=== PATIENT | male | born 2000 | race African-American/Black ===

== ENCOUNTER 2019-03-30 16:07 | Emergency (ER) | payer SELFPAY ==
[2019-03-30] MEDS ORDERED: Sodium Chloride 0.9% 10 ML Syringe FLUSH PRN (16:33)
[2019-03-30] MEDS ORDERED: Sodium Chloride 0.9% 1,000 ML IV ONE (16:35)
[2019-03-30] MEDS ORDERED: Iopamidol 755 Mg/ML 100 ML Bottle IV ONE (17:18)
[2019-03-30] MEDS ORDERED: Sodium Chloride 0.9% 1,000 ML IV SCH (19:30)
--- NOTE | 2019-03-30 20:14 | EDM.PDOC ---
ED HPI GENERAL MEDICAL PROBLEM - General Chief Complaint: General Stated Complaint: SPINTING UP BLOOD Time Seen by Provider: 03/30/19 16:20 Source of Information: Reports: Patient History Limitations: Reports: No Limitations - History of Present Illness INITIAL COMMENTS - FREE TEXT/NARRATIVE: 19-year-old male is playing a football game and was speared by another player's helmet over his right lateral lower chest and mid flank at approximate 4 PM today. He states he had immediate pain in the area but continued to play football and then he had with production of bright red blood in his sputum. This was associated with an increase in pain particularly with deep breaths and with movement of his chest and the EMS at the football game evaluated the patient and recommended that he come to the emergency department for evaluation. Another member of the team brought the patient to the emergency department via private vehicle for evaluation. The patient reports he has sharp pain in his right lower chest and right mid flank that is worse with palpation and with taking a deep breath and with movement. He rates pain as a 6/10. The pain does not radiate. He has had no nausea or vomiting. He has not urinated since the injury occurred. He feels somewhat short of breath because of the pain and he has some splinting type respirations. There are no other associated signs or symptoms. There are no other modifying factors. Onset: Today (4 PM) Duration: Constant Location: Reports: Chest, Abdomen Quality: Reports: Sharp, Stabbing Severity: Moderate Improves with: Reports: Rest Worsens with: Reports: Breathing, Other (Palpation), Movement (Movement) Context: Reports: Trauma Associated Symptoms: Reports: Chest Pain, Shortness of Breath, Other (Hemoptysis ) Treatments PRINTED [employer]AR[employer]AS[employer] ETCHER: Reports: Other (see below) (Nothing) Right abdomen Pain Score (Numeric/FACES): 6 - Related Data Allergies Allergy/AdvReac Type Severity Reaction Status Date / Time amoxicillin [From Augmentin] Allergy Swelling Verified 03/30/19 16:15 clavulanic acid Allergy Swelling Verified 03/30/19 16:15 [From Augmentin] Home Meds: Home Meds NK [No Known Home Meds] 03/30/19 [History] Past Medical History - Past Health History Medical/Surgical History: Denies Medical/Surgical History - Past Surgical History Other Surgical History Comment: No previous surgeries. Social & Family History - Tobacco Use Smoking Status *Q: Current Some Day Smoker - Caffeine Use Caffeine Use: Reports: None - Alcohol Use Alcohol Use History: Yes Alcohol Use Frequency: Socially - Recreational Drug Use Recreational Drug Use: Yes Drug Use in Last 12 Months: Yes Recreational Drug Type: Reports: Marijuana/Hashish Recreational Drug Use Frequency: Weekly - Living Situation & Occupation Living situation: Reports: Single Occupation: Student (At a college in [facility]) ED ROS GENERAL - Review of Systems Review Of Systems: See Below Constitutional: Reports: No Symptoms HEENT: Reports: No Symptoms Respiratory: Reports: Shortness of Breath, Pleuritic Chest Pain, Hemoptysis Cardiovascular: Reports: Chest Pain GI/Abdominal: Reports: No Symptoms. Denies: Nausea, Vomiting : Reports: Flank Pain (Right flank pain) Musculoskeletal: Reports: No Symptoms Skin: Reports: No Symptoms Neurological: Reports: No Symptoms Hematologic/Lymphatic: Reports: No Symptoms Immunologic: Reports: No Symptoms ED EXAM, GENERAL - Physical Exam Exam: See Below Exam Limited By: No Limitations General Appearance: Alert, WD/WN, Mild Distress (to moderate), Other (Mild splinting with respirations and repetitive small amounts of hemoptysis) Eye Exam: Bilateral Eye: EOMI, Normal Inspection, PERRL Ears: Normal External Exam, Hearing Grossly Normal Ear Exam: Bilateral Ear: Auricle Normal Nose: Normal Inspection, Normal Mucosa, No Blood Throat/Mouth: Normal Inspection, Normal Oropharynx, Normal Voice, No Airway Compromise Head: Atraumatic, Normocephalic Neck: Normal Inspection, Supple, Non-Tender, Full Range of Motion Respiratory/Chest: No Respiratory Distress, Lungs Clear, Normal Breath Sounds, No Accessory Muscle Use, Other (Tender over anterior lateral lower chest. There is no crepitus. There is no subcutaneous emphysema.). No: Crackles, Rales Cardiovascular: Normal Peripheral Pulses, Regular Rate, Rhythm, No Edema, No Murmur Peripheral Pulses: 2+: Radial (L), Radial (R) GI/Abdominal: Normal Bowel Sounds, Soft, Non-Tender, No Mass Back Exam: Normal Inspection. No: Vertebral Tenderness Extremities: Normal Inspection, Normal Range of Motion, Non-Tender, No Pedal Edema, Normal Capillary Refill Neurological: Alert, Oriented, CN II-XII Intact, Normal Cognition, No Motor/ Sensory Deficits Skin Exam: Warm, Dry, Intact, Normal Color, No Rash Course - Vital Signs Last Recorded V/S: Last Vital Signs Temp 37.0 C 03/30/19 16:10 Pulse 76 03/30/19 19:25 Resp 16 03/30/19 19:25 BP 126/64 03/30/19 19:25 Pulse Ox 100 03/30/19 19:25 - Orders/Labs/Meds Orders: Active Orders 24 hr Category Date Time Status Chest 2V [CR] Stat Exams 03/30/19 16:33 Taken Chest Abdomen Pelvis w Cont [CT] Stat Exams 03/30/19 17:14 Taken Sodium Chloride 0.9% [Normal Saline] 1,000 ml Med 03/30/19 19:30 Active IV ASDIRECTED Sodium Chloride 0.9% [Saline Flush] Med 03/30/19 16:33 Active 10 ml FLUSH ASDIRECTED PRN Peripheral IV Insertion Adult [OM.PC] Routine Oth 03/30/19 16:33 Ordered Medication Orders Sodium Chloride (Normal Saline) 1,000 mls @ 150 mls/hr IV ASDIRECTED SANDRO Last Admin: 03/30/19 19:27 Dose: 150 mls/hr Sodium Chloride (Saline Flush) 10 ml FLUSH ASDIRECTED PRN PRN Reason: Keep Vein Open Last Admin: 03/30/19 17:02 Dose: 10 ml Labs: Laboratory Tests 03/30/19 03/30/19 03/30/19 Range/Units 16:42 16:45 16:45 WBC 7.8 (4.5-12.0) X10-3/uL RBC 5.21 (4.30-5.75) x10(6)uL Hgb 16.0 (13.5-17.8) g/dL Hct 48.8 (30.0-51.3) % MCV 93.6 (80-96) fL MCH 30.7 (27.7-33.6) pg MCHC 32.8 (32.2-35.4) g/dL RDW 14.0 (11.5-15.5) % Plt Count 239 (125-369) X10(3)uL MPV 9.0 (7.4-10.4) fL Neut % (Auto) 71.4 (46-82) % Lymph % (Auto) 19.8 (13-37) % [place] % (Auto) 6.0 (4-12) % Eos % (Auto) 0 L (1.0-5.0) % Baso % (Auto) 3 H (0-2) % Neut # (Auto) 5.6 (1.6-8.3) # Lymph # (Auto) 1.5 (0.6-5.0) # [place] # (Auto) 0.5 (0.0-1.3) # Eos # (Auto) 0.0 (0.0-0.8) # Baso # (Auto) 0.2 (0.0-0.2) # Sodium 141 (135-145) mmol/L Potassium 3.9 (3.5-5.3) mmol/L Chloride 104 (100-110) mmol/L Carbon Dioxide 26 (21-32) mmol/L BUN 9 (7-18) mg/dL Creatinine 1.4 H (0.70-1.30) mg/dL Est Cr Clr Drug Dosing 89.64 mL/min Estimated GFR (MDRD) > 60 (>60) BUN/Creatinine Ratio 6.4 L (9-20) Glucose 83 (80-116) mg/dL Calcium 9.6 (8.6-10.2) mg/dL Total Bilirubin 1.1 (0.1-1.3) mg/dL AST 33 H (5-25) IU/L ALT 28 (12-36) U/L Alkaline Phosphatase 103 (56-112) IU/L Total Protein 8.0 (6.0-8.0) g/dL Albumin 4.5 (3.5-5.2) g/dL Globulin 3.5 g/dL Albumin/Globulin Ratio 1.3 Lipase (73-393) U/L Urine Color Yellow (YELLOW) Urine Appearance Clear (CLEAR) Urine pH 6.0 (5.0-6.5) Ur Specific [place] 1.020 (1.010-1.025) Urine Protein 30 H (NEGATIVE) mg/dL Urine Glucose (UA) Normal (NORMAL) mg/dL Urine Ketones 15 H (NEGATIVE) mg/dL Urine Occult Blood Negative (NEGATIVE) Urine Nitrite Negative (NEGATIVE) Urine Bilirubin Negative (NEGATIVE) Urine Urobilinogen Normal (NEGATIVE) mg/dL Ur Leukocyte Esterase Negative (NEGATIVE) Urine RBC 0-5 (0-5) Urine WBC 0-5 (0-5) Ur Squamous Epith Cells Occasional (NS,R,O) Urine Bacteria Few H (NS) Urine Mucus Moderate H (NS) 03/30/19 Range/Units 16:45 WBC (4.5-12.0) X10-3/uL RBC (4.30-5.75) x10(6)uL Hgb (13.5-17.8) g/dL Hct (30.0-51.3) % MCV (80-96) fL MCH (27.7-33.6) pg MCHC (32.2-35.4) g/dL RDW (11.5-15.5) % Plt Count (125-369) X10(3)uL MPV (7.4-10.4) fL Neut % (Auto) (46-82) % Lymph % (Auto) (13-37) % [place] % (Auto) (4-12) % Eos % (Auto) (1.0-5.0) % Baso % (Auto) (0-2) % Neut # (Auto) (1.6-8.3) # Lymph # (Auto) (0.6-5.0) # [place] # (Auto) (0.0-1.3) # Eos # (Auto) (0.0-0.8) # Baso # (Auto) (0.0-0.2) # Sodium (135-145) mmol/L Potassium (3.5-5.3) mmol/L Chloride (100-110) mmol/L Carbon Dioxide (21-32) mmol/L BUN (7-18) mg/dL Creatinine (0.70-1.30) mg/dL Est Cr Clr Drug Dosing mL/min Estimated GFR (MDRD) (>60) BUN/Creatinine Ratio (9-20) Glucose (80-116) mg/dL Calcium (8.6-10.2) mg/dL Total Bilirubin (0.1-1.3) mg/dL AST (5-25) IU/L ALT (12-36) U/L Alkaline Phosphatase (56-112) IU/L Total Protein (6.0-8.0) g/dL Albumin (3.5-5.2) g/dL Globulin g/dL Albumin/Globulin Ratio Lipase 52 L (73-393) U/L Urine Color (YELLOW) Urine Appearance (CLEAR) Urine pH (5.0-6.5) Ur Specific [place] (1.010-1.025) Urine Protein (NEGATIVE) mg/dL Urine Glucose (UA) (NORMAL) mg/dL Urine Ketones (NEGATIVE) mg/dL Urine Occult Blood (NEGATIVE) Urine Nitrite (NEGATIVE) Urine Bilirubin (NEGATIVE) Urine Urobilinogen (NEGATIVE) mg/dL Ur Leukocyte Esterase (NEGATIVE) Urine RBC (0-5) Urine WBC (0-5) Ur Squamous Epith Cells (NS,R,O) Urine Bacteria (NS) Urine Mucus (NS) Meds: Medications Generic Name Dose Route Start Last Admin Trade Name Freq PRN Reason Stop Dose Admin Sodium Chloride 1,000 mls @ 150 mls/hr 03/30/19 19:30 03/30/19 19:27 Normal Saline IV 150 mls/hr ASDIRECTED SANDRO Administration Sodium Chloride 10 ml 03/30/19 16:33 03/30/19 17:02 Saline Flush FLUSH 10 ml ASDIRECTED PRN Administration Keep Vein Open Discontinued Medications Generic Name Dose Route Start Last Admin Trade Name Freq PRN Reason Stop Dose Admin Sodium Chloride 1,000 mls @ 999 mls/hr 03/30/19 16:35 03/30/19 17:04 Normal Saline IV 03/30/19 17:35 999 mls/hr .BOLUS ONE Administration Iopamidol 100 ml 03/30/19 17:18 03/30/19 17:33 [id number] (76%) IV 03/30/19 17:19 100 ml . DIRECTED ONE Administration - Radiology Interpretation Free Text/Narrative:: Chest x-ray PA and lateral shows no acute disease CT scan of the chest, abdomen and pelvis with IV contrast shows a small medial right sided pneumothorax and to loculated areas of gas and presumed blood measuring 2 x 3 cm each in the right lower lung. The radiologist felt that there was evidence of pulmonary contusion as well. - Re-Assessments/Exams Free Text/Narrative Re-Assessment/Exam: 03/30/19 18:30: I discussed the patient's case with Dr. Falcon, general surgeon defensive fire control systems operator at the [facility] and he felt with the trauma and the pneumothorax, pulmonary contusion and evidence of intraparenchymal loculated areas of blood and air, that the patient would be best served at a trauma center and he recommended consulting [place] for transfer. 03/30/19 18:40: I discussed the findings of the CT scan with the patient and the recommendations of the surgeon here at [facility]. Also discussed these with the patient's mother with the patient's consent and at his request. They are agreeable to me discussing his case with the trauma physician at [facility] in [place]. 03/30/19 18:50: I discussed patient's case with Dr. Curry, trauma surgeon on- call at [facility], and he has agreed to accept the patient in transfer. The patient will be transferred via ambulance to [facility] for direct admission. 03/30/19 20:24: The patient remains vitally stable. There has been a delay in transfer secondary to no ambulance available for transfers because of other ALS ambulance calls in the area. The patient's saturations remained normal. He is in no respiratory distress. He has had no further hemoptysis. Departure - Departure Time of Disposition: 20:30 Disposition: DC/Tfer to Acute Hospital 02 Condition: Fair (Guarded) Clinical Impression: Pneumothorax, right, Loculated right lateral pneumothorax Right pulmonary contusion Qualifiers: Encounter type: initial encounter Qualified Code(s): S27.321A - Contusion of lung, unilateral, initial encounter - Discharge Information Referrals: PCP,None [Primary Care Provider] - - My Orders Last 24 Hours: My Active Orders 03/30/19 16:33 Chest 2V [CR] Stat Sodium Chloride 0.9% [Saline Flush] 10 ml FLUSH ASDIRECTED PRN Peripheral IV Insertion Adult [OM.PC] Routine 03/30/19 17:14 Chest Abdomen Pelvis w Cont [CT] Stat 03/30/19 19:30 Sodium Chloride 0.9% [Normal Saline] 1,000 ml IV ASDIRECTED - Assessment/Plan Last 24 Hours: My Active Orders 03/30/19 16:33 Chest 2V [CR] Stat Sodium Chloride 0.9% [Saline Flush] 10 ml FLUSH ASDIRECTED PRN Peripheral IV Insertion Adult [OM.PC] Routine 03/30/19 17:14 Chest Abdomen Pelvis w Cont [CT] Stat 03/30/19 19:30 Sodium Chloride 0.9% [Normal Saline] 1,000 ml IV ASDIRECTED
== END 2019-03-30 20:34 ==
LOC: FB.ED 16:07
DX: S27.0XXA Traumatic pneumothorax, initial encounter (principal); S27.321A Contusion of lung, unilateral, initial encounter; F17.200 Nicotine dependence, unspecified, uncomplicated; Z88.1 Allergy status to other antibiotic agents; Z88.0 Allergy status to penicillin; W21.81XA Striking against or struck by football helmet, initial encounter; Y93.61 Activity, american tackle football
CPT/HCPCS: 36415; 71046; 71260; 74177; 80053; 81001; 83690; 85025; 96360; 96361; 99285; J7030; Q9967